=== PATIENT | female | born 1985 | race Caucasian/White ===

== ENCOUNTER → 2016-08-06 | Outpatient (CLI) | payer BC ==
[~2016-08-06] MED LIST: CEPH-507 PO; IBP200T PO; OXYC1TAB87 PO; PNV1CAPS15 PO
[2016-08-06 19:35] VITALS: BP 115/79
--- NOTE | 2016-08-06 19:35 | Urgent Care T Sheet Gen (E) ---
Intake General Temperature (Fahrenheit): 101.5 Pulse: 116 Blood Pressure Systolic: 115 Blood Pressure Diastolic: 79 Respirations: 20 SPO2: 97 Description of Symptoms Patient presents with fever, body aches and L breast pain since last night. Patient is currently nursing and is 3 weeks post . States the baby is nursing ok but her L breast is very painful and feels full, even after he is done. Had the baby via and denies any issues with the surgical area. Been taking ibuprofen 600mg q 6 hrs. Also states she has a crack along the L nipple for which she has been using lanolin cream. History of Present Illness Allergies: Coded Allergies: No Known Drug Allergies (Unverified , 07/16/16) Home Meds Reported Medications Oxycodone HCl/Acetaminophen (Percocet 5mg/325mg)1 Tab Tablet1 Tab PO Q4H PRN PAIN Ref 0 07/18/16 Ibuprofen 200 Mg [id number] Mg PO Q6H PRN PAIN Ref 0 07/18/16 Pnv Combo#47/Iron/Fa #1/Dha (Pnv-Dha Softgel)1 Each Capsule1 Tab PO DAILY 07/18/16 Respiratory Constitutional Symptoms: Fever Malaise EENTM: No symptoms reported Respiratory: No symptoms reported Cardiovascular: No symptoms reported Estimated Date of Delivery: 07/23/2016 Other L breast pain All Other Systems Reviewed Remaining Systems: All other systems reviewed with negative findings Past Sxhmdsl-Sahlkw-Vnkrwr Hx Patient's Social History Alcohol Use: Denies Use Smoking Status: Former smoker Recent foreign travel: No Reproductive System : 2 Living Children: 1 HIV/AIDS: Negative Physical Exam Physical Exam General Appearance: WD/WN No apparent distress Respiratory Exam: Lungs clear Normal breath sounds Cardiovascular Exam: No murmur Tachycardia Skin Exam: Other (examination of the L breast reveals redness along the 11 o' clock position. tenderness and warmth is also noted along the area. there is a small crack noted along the L nipple. R breast is unremarkable. Patient's c- section incision appears to be healing well without sign of infection.) Departure Urgent Care Impression Impression: Primary Impression: Mastitis Departure Disposition: 01 HOME OR SELF-CARE Condition: Stable Referrals: KARAN PATTERSON MD (PCP) Additional Instructions: I have started the patient on Keflex 500mg QID x 7 days for treatment. Encouraged her to continue with Ibuprofen as directed. Cold compress to the area. Continue nursing as normal. Return as needed or if symptoms worsen Patient understands DC instructions. All questions were answered. Scripts Cephalexin (Keflex)500 Mg [id number] Mg PO QID Infection #28 CAP Ref 0 Prov:JOSE CARLOS AMBRIZ 08/06/16 End of report . JOSE CARLOS AMBRIZ Aug 06, 2016 19:35
== END ==
LOC: MHUC 19:14
PROVIDERS: ATTEND Physician Assistant
DX: N61.0 Mastitis without abscess (principal)
CPT/HCPCS: 99213